=== PATIENT | female | born 1945 | race Caucasian/White ===

== ENCOUNTER 2024-12-08 16:40 | Inpatient (IN) | payer MEDICARE, OTHER ==
[~2024-12-08] VITALS: Ht 160 cm; Wt 76.7 kg
[2024-12-08] MEDS ORDERED: LIDO30AD10 TP (17:06)
[2024-12-08] MEDS ORDERED: DABI150C PO (17:06)
[2024-12-08] MEDS ORDERED: GABA100C PO (17:06)
[2024-12-08] MEDS ORDERED: CARV12.52 PO (17:06)
[2024-12-08] MEDS ORDERED: ATOR80TA PO (17:06)
[2024-12-08] MEDS ORDERED: CHOL500050 PO (17:06)
[2024-12-08] MEDS ORDERED: ALEN70TA3 PO (17:06)
[2024-12-08] MEDS ORDERED: CALC-1310 PO (17:06)
[2024-12-08 17:12] LABS: BASOPHILS # (AUTO) 0.1 K/UL (0.0-0.2); BASOPHILS % (AUTO) 0.9 % (0.0-2.0); EOSINOPHILS % (AUTO) 0.2 % (0.0-7.0); HEMOGLOBIN 15.4 g/dL (10.9-14.3); LYMPHOCYTES # (AUTO) 0.7 K/uL (0.8-4.8); MEAN CORPUSCULAR HEMOGLOBIN 30.7 uug (24.7-32.8); MEAN CORPUSCULAR HGB CONC 33 g/dL (32.3-35.6); MEAN CORPUSCULAR VOLUME 93.3 fL (75.5-95.3); MONOCYTES # (AUTO) 0.8 K/uL (0.1-1.30); MONOCYTES % (AUTO) 12.2 % (0.0-11.0); NEUTROPHILS # (AUTO) 5.1 K/uL (1.8-8.9); NEUTROPHILS % (AUTO) 76.7 % (38.5-71.5); PLATELET COUNT (AUTO) 191 K/uL (179-408); RED BLOOD CELL COUNT(AUTO) 5.04 MIL/uL (3.63-4.92); RED CELL DISTRIBUTION WIDTH 14.5 % (12.3-17.7); WHITE BLOOD COUNT (AUTO) 6.6 K/uL (3.8-11.8)
[2024-12-08 17:14] LABS: DIFFERENTIAL COMMENT 1
[2024-12-08 17:21] LABS: CALCIUM 9.2 mg/dL (8.5-10.1); CARBON DIOXIDE 23 mmol/L (21-32); CHLORIDE 101 mmol/L (98-107); CREATININE 0.9 mg/dL (0.6-1.3); GLUCOSE 107 mg/dL (74-106); POTASSIUM 3.7 mmol/L (3.5-5.1); SODIUM SERUM 135 mmol/L (136-145); UREA NITROGEN, BLOOD 15 mg/dL (7-18)
[2024-12-08 17:33] LABS: ALANINE AMINOTRANSFERASE 25 U/L (14-59); ALBUMIN 3.5 g/dL (3.4-5.0); ALKALINE PHOSPHATASE 153 U/L (50-136); ASPARTATE AMINOTRANSFERASE 26 U/L (15-37); BILIRUBIN,DIRECT 0.5 mg/dL (0.0-0.2); NT-PRO BNP 9662 pg/mL (0-125); TOTAL PROTEIN, SERUM 7.6 g/dL (6.4-8.2)
[2024-12-08 17:38] LABS: LACTIC ACID 2.2 mmol/L (0.4-2.0)
[2024-12-08] MEDS: IV NORMAL SALINE 500 ML BAG IV ONE (18:00)
[2024-12-08] MEDS: IV NORMAL SALINE 1000 ML BAG IV ONE (18:04)
[2024-12-08] MEDS ORDERED: CLONIDINE HCL 0.1 MG TABLET ONE (18:18)
[2024-12-08] MEDS: CLONIDINE HCL 0.1 MG TABLET PO ONE (18:18)
[2024-12-08] MEDS ORDERED: AZITHROMYCIN 250 MG TABLET ONE (18:18)
[2024-12-08] MEDS: AZITHROMYCIN 250 MG TABLET PO ONE (18:20)
[2024-12-08] MEDS ORDERED: DILTIAZEM HCL 25 MG IV ONE ×2 (18:37→20:42)
[2024-12-08] MEDS: DILTIAZEM HCL 25 MG IV IV ONE (18:40)
[2024-12-08] MEDS ORDERED: hydrALAZINE HCL 20 MG/1 ML VIAL ONE (20:09)
[2024-12-08] MEDS: hydrALAZINE HCL 20 MG/1 ML VIAL IV STA (20:09)
[2024-12-08] MEDS ORDERED: FUROSEMIDE 40 MG/4 ML VIAL ONE (20:13)
[2024-12-08] MEDS ORDERED: LORAZEPAM 2 MG/1 ML VIAL ONE (20:14)
[2024-12-08] MEDS: LORAZEPAM 2 MG/1 ML VIAL IV ONE (20:18)
[2024-12-08] MEDS: FUROSEMIDE 40 MG/4 ML VIAL IV ONE ×2 (20:19→23:46)
[2024-12-08] MEDS ORDERED: ALBUTEROL SULFATE 2.5 MG/3 ML NEBU ONE (20:39)
[2024-12-08 20:44] LABS: BASOPHILS # (AUTO) 0.1 K/UL (0.0-0.2); BASOPHILS % (AUTO) 0.7 % (0.0-2.0); HEMATOCRIT 47.6 % (31.2-41.9); HEMOGLOBIN 15.9 g/dL (10.9-14.3); LYMPHOCYTES # (AUTO) 1.1 K/uL (0.8-4.8); LYMPHOCYTES % (AUTO) 13.2 % (20.5-51.5); MEAN CORPUSCULAR HEMOGLOBIN 31.1 uug (24.7-32.8); MEAN CORPUSCULAR HGB CONC 34 g/dL (32.3-35.6); MEAN CORPUSCULAR VOLUME 92.8 fL (75.5-95.3); MONOCYTES # (AUTO) 0.7 K/uL (0.1-1.30); NEUTROPHILS # (AUTO) 6.4 K/uL (1.8-8.9); NEUTROPHILS % (AUTO) 77.1 % (38.5-71.5); PLATELET COUNT (AUTO) 240 K/uL (179-408); RED BLOOD CELL COUNT(AUTO) 5.13 MIL/uL (3.63-4.92); RED CELL DISTRIBUTION WIDTH 14.3 % (12.3-17.7); WHITE BLOOD COUNT (AUTO) 8.2 K/uL (3.8-11.8)
[2024-12-08] MEDS: ALBUTEROL SULFATE 2.5 MG/3 ML NEBU NEB ONE (20:45)
[2024-12-08 20:48] LABS: ABG BASE EXCESS -5.8 mmol/L (-2.0-3.0); ABG HCO3 21.1 mmol/L (21.0-28.0); ABG PCO2 46.2 mmHg (32.0-45.0); ABG PH 7.277 (7.350-7.450); ABG PO2 65.9 mmHg (83.0-108.0); ABG SITE LEFT RADIAL; ABG TOTAL HEMOGLOBIN 16.6 G/dL (12.0-16.0); AaDO2 90.4 mmHg; COHb 0.8 % (0.5-1.5); MetHb 0.4 % (0.0-1.5); O2Hb 88.2 % (94.0-98.0)
[2024-12-08 20:54] LABS: CALCIUM 8.7 mg/dL (8.5-10.1); CARBON DIOXIDE 25 mmol/L (21-32); CHLORIDE 102 mmol/L (98-107); CREATININE 0.9 mg/dL (0.6-1.3); GLUCOSE 176 mg/dL (74-106); POTASSIUM 4.2 mmol/L (3.5-5.1); SODIUM SERUM 138 mmol/L (136-145); UREA NITROGEN, BLOOD 15 mg/dL (7-18)
[2024-12-08] MEDS: DILTIAZEM HCL IV 125 MG in IV NORMAL SALINE 100 ML IV PRN (21:02)
[2024-12-08 21:10] LABS: ALANINE AMINOTRANSFERASE 29 U/L (14-59); ALBUMIN 3.6 g/dL (3.4-5.0); ALKALINE PHOSPHATASE 158 U/L (50-136); ASPARTATE AMINOTRANSFERASE 28 U/L (15-37); BILIRUBIN,TOTAL 2.2 mg/dL (0.2-1.0); NT-PRO BNP 9834 pg/mL (0-125); TOTAL PROTEIN, SERUM 7.9 g/dL (6.4-8.2)
[2024-12-08] MEDS ORDERED: Cholecalciferol (Vitamin D3) (Vitamin D3) 1 CAP) PO SCH (21:15)
[2024-12-08] MEDS ORDERED: ONDANSETRON 4 MG/2 ML VIAL IV PRN (21:15)
[2024-12-08] MEDS ORDERED: ACETAMINOPHEN 325 MG TABLET PO PRN (21:15)
[2024-12-08] MEDS ORDERED: MAGNESIUM HYDROXIDE 30 ML LIQUID UDC PO PRN (21:15)
[2024-12-08] MEDS ORDERED: REMEDY ESSENTIAL ZINC PASTE 113 GM TP PRN (21:15)
[2024-12-08] MEDS ORDERED: AMIODARONE HCL 150 MG/3 ML VIAL IV ONE ×2 (21:23→23:17)
[2024-12-08] MEDS ORDERED: CEFEPIME HCL 1 G VIAL ONE (21:24)
[2024-12-08] MEDS: AMIODARONE HCL IV 150 MG in IV DEXTROSE 5% 100 ML IV ONE (21:28)
[2024-12-08] MEDS: CEFEPIME HCL 1 G in IV DEXTROSE 5% 50 ML IV SCH (21:29)
[2024-12-08] MEDS: ENOXAPARIN SODIUM 40 MG/0.4 ML DISP.SYRIN SQ SCH (21:29)
[2024-12-08 23:00] VITALS: BP 101/60; TEMP 97.7
[2024-12-08 23:11] VITALS: O2SAT 99
[2024-12-08 23:30] LABS: ABG BASE EXCESS 0.7 mmol/L (-2.0-3.0); ABG HCO3 23.4 mmol/L (21.0-28.0); ABG PCO2 32.2 mmHg (32.0-45.0); ABG PO2 380.5 mmHg (83.0-108.0); ABG SITE LEFT RADIAL; ABG TOTAL HEMOGLOBIN 14.2 G/dL (12.0-16.0); AaDO2 99.8 mmHg; COHb 0.6 % (0.5-1.5); MetHb 0.4 % (0.0-1.5)
[2024-12-08] MEDS: AMIODARONE HCL IV 450 MG in IV DEXTROSE 5% 250 ML IV PRN (23:37)
[2024-12-09] VITALS (31 sets, daily range): BP systolic 101–168; BP diastolic 53–114; TEMP 97.9–99.2; O2SAT 96–99
[2024-12-09] MEDS ORDERED: VANCOMYCIN IV 200 ML ONE (01:45)
[2024-12-09] MEDS ORDERED: CEFEPIME HCL 1 G VIAL ONE (01:45)
[2024-12-09] MEDS: VANCOMYCIN IV 1,000 MG in IV NORMAL SALINE 250 ML IV ONE (01:49)
[2024-12-09 05:02] LABS: BASOPHILS # (AUTO) 0.1 K/UL (0.0-0.2); BASOPHILS % (AUTO) 0.7 % (0.0-2.0); EOSINOPHILS % (AUTO) 0.1 % (0.0-7.0); HEMATOCRIT 41.3 % (31.2-41.9); HEMOGLOBIN 14.2 g/dL (10.9-14.3); LYMPHOCYTES # (AUTO) 1.1 K/uL (0.8-4.8); LYMPHOCYTES % (AUTO) 14.7 % (20.5-51.5); MEAN CORPUSCULAR HGB CONC 34 g/dL (32.3-35.6); MEAN CORPUSCULAR VOLUME 90.5 fL (75.5-95.3); MONOCYTES % (AUTO) 14.1 % (0.0-11.0); NEUTROPHILS % (AUTO) 70.4 % (38.5-71.5); PLATELET COUNT (AUTO) 168 K/uL (179-408); RED BLOOD CELL COUNT(AUTO) 4.56 MIL/uL (3.63-4.92); WHITE BLOOD COUNT (AUTO) 7.2 K/uL (3.8-11.8)
[2024-12-09 05:12] LABS: DIFFERENTIAL COMMENT 1
[2024-12-09 05:23] LABS: CALCIUM 7.5 mg/dL (8.5-10.1); CARBON DIOXIDE 28 mmol/L (21-32); CHLORIDE 100 mmol/L (98-107); GLUCOSE 129 mg/dL (74-106); MAGNESIUM 1.6 mg/dL (1.8-2.4); NT-PRO BNP 13802 pg/mL (0-125); PHOSPHOROUS 3.8 mg/dL (2.5-4.9); POTASSIUM 3.1 mmol/L (3.5-5.1); SODIUM SERUM 138 mmol/L (136-145); UREA NITROGEN, BLOOD 15 mg/dL (7-18)
[2024-12-09 06:21] LABS: ABG BASE EXCESS 4.9 mmol/L (-2.0-3.0); ABG PCO2 36.2 mmHg (32.0-45.0); ABG PH 7.506 (7.350-7.450); ABG PO2 83.6 mmHg (83.0-108.0); ABG SITE RIGHT RADIAL; ABG TOTAL HEMOGLOBIN 13.6 G/dL (12.0-16.0); AaDO2 97.1 mmHg; COHb 0.1 % (0.5-1.5); MetHb 0.3 % (0.0-1.5); O2Hb 96.1 % (94.0-98.0)
[2024-12-09] MEDS: CALCIUM CARBONATE 600 MG TABLET PO SCH (08:01)
[2024-12-09] MEDS ORDERED: POTASSIUM CHLORIDE 10 MEQ, LIDOCAINE-MPF 1% 1 ML in IV DEXTROSE 5% 100 ML IV SCH (08:15)
[2024-12-09] MEDS: PANTOPRAZOLE SODIUM 40 MG VIAL IV SCH (08:15)
[2024-12-09] MEDS ORDERED: LIDOCAINE 5% PATCH TD SCH (09:00)
[2024-12-09] MEDS: POTASSIUM CHLORIDE 50 ML IV SCH (09:24)
[2024-12-09] MEDS: FUROSEMIDE 20 MG TABLET PO SCH (09:24)
[2024-12-09] MEDS: MAGNESIUM SULFATE/D5W 100 ML IV SCH (10:19)
[2024-12-09] MEDS ORDERED: ERGO500040 PO (14:14)
[2024-12-09] MEDS: CEFEPIME HCL 2 GM in IV DEXTROSE 5% 100 ML IV SCH (17:26)
[2024-12-09 17:53] LABS: *BILIRUBIN,URIN NEGATIVE (NEGATIVE); *BLOOD, URINE 2+ (NEGATIVE); *CLARITY,URINE CLEAR (CLEAR); *COLOR,URINE YELLOW (YELLOW); *KETONES,URINE NEGATIVE (NEGATIVE); *PROTEIN,URINE TRACE (NEGATIVE); LEUKOCYTE ESTERASE ,URINE NEGATIVE (NEGATIVE); NITRITE, URINE NEGATIVE (NEGATIVE); PH,URINE 5.5 (5.0-8.0); UGLUCOSE NEGATIVE (NEGATIVE)
[2024-12-09 18:39] LABS: BACTERIA,URINE FEW /HPF (NONE SEEN); SQUAMOUS EPITHELIAL CELL,UR FEW /HPF (NONE SEEN); WBC,URINE 0-3 /HPF (0-3)
[2024-12-09] MEDS: ATORVASTATIN 40 MG TABLET PO SCH (20:07)
[2024-12-09] MEDS ORDERED: PANT40VI IV (20:52)
[2024-12-09] MEDS ORDERED: RXVAN XX (20:52)
[2024-12-09] MEDS ORDERED: MENT113O TP (20:52)
[2024-12-09] MEDS ORDERED: FURO20TA4 PO (20:52)
[2024-12-09] MEDS ORDERED: CEFE1PIG3 IV (20:52)
[2024-12-09] MEDS ORDERED: ONDA4VIA23 IV (20:52)
[2024-12-09] MEDS ORDERED: Medication Not On Formulary EA (Atorvastatin Calcium (Lipitor) 80 MG) PO SCH (21:00)
[2024-12-10] MEDS ORDERED: VANCOMYCIN IV 1,000 MG in IV DEXTROSE 5% 250 ML IV SCH
[2024-12-10] MEDS ORDERED: LIDOCAINE 5% PATCH TD SCH (09:00)
[2024-12-11] MEDS ORDERED: ERGOCALCIFEROL 50,000 UNIT CAPSULE PO SCH (09:00)
[2024-12-11] MEDS ORDERED: ALENDRONATE SODIUM 70 MG TABLET PO SCH (09:00)
== END 2024-12-09 21:43 | disposition short-term general hospital (02) | DRG 871 ==
LOC: ER 16:40 → CCU 21:40
PROVIDERS: ADMIT Nurse Practitioner Acute Care; ATTEND Internal Medicine
PROC: 5A09357 Assistance with Respiratory Ventilation, Less than 24 Consecutive Hours, Continuous Positive Airway Pressure (ICD-10-PCS; principal; 2024-12-08)
DX: A41.9 Sepsis, unspecified organism (principal); G92.8 Other toxic encephalopathy; I50.33 Acute on chronic diastolic (congestive) heart failure; J96.01 Acute respiratory failure with hypoxia; I26.99 Other pulmonary embolism without acute cor pulmonale; I48.20 Chronic atrial fibrillation, unspecified; I45.2 Bifascicular block; F01.54 Vascular dementia, unspecified severity, with anxiety; F01.52 Vascular dementia, unspecified severity, with psychotic disturbance; I82.403 Acute embolism and thrombosis of unspecified deep veins of lower extremity, bilateral; I11.0 Hypertensive heart disease with heart failure; Z86.73 Personal history of transient ischemic attack (TIA), and cerebral infarction without residual deficits; Z88.2 Allergy status to sulfonamides; Z88.5 Allergy status to narcotic agent; Z79.83 Long term (current) use of bisphosphonates; Z88.6 Allergy status to analgesic agent; E87.6 Hypokalemia; E83.42 Hypomagnesemia; I65.23 Occlusion and stenosis of bilateral carotid arteries; I69.919 Unspecified symptoms and signs involving cognitive functions following unspecified cerebrovascular disease; G89.29 Other chronic pain; M15.9 Polyosteoarthritis, unspecified; E78.5 Hyperlipidemia, unspecified; M81.0 Age-related osteoporosis without current pathological fracture; R60.0 Localized edema; Z79.02 Long term (current) use of antithrombotics/antiplatelets; Z98.42 Cataract extraction status, left eye; Z98.41 Cataract extraction status, right eye; R00.1 Bradycardia, unspecified
CPT/HCPCS: 36415; 36600; 71045; 82803; 83605; 83735; 84100; 84484; 85025; 85610; 85730; 87040; 87086; 93307; 94660; 99082-TC; A4606; A4663; G0378; J0282; J0360; J0692; J1650; J1938; J2060; J2470; J3370; J3475; J3480; J3490; J7040; J7050; Q0144